=== PATIENT | female | born 1935 | race Caucasian/White ===

== ENCOUNTER → 2016-06-05 | Outpatient (CLI) | payer MEDICARE ==
[~2016-06-05] MED LIST: ACETAMINOPHEN PO; ALLEGRA180 MG PO; AMITIZA24 MCG PO; AMITRIPTYLINE H50 MG; AMITRIPTYLINE H50 MG PO; AMITRYPTYLINE PO; ASPIRIN EC81 M1 PO; ASPIRIN81 MG PO; AZO STANDARD97.5 MG PO; BACLOFEN10 MG PO; BACTRIM DS TAB1 EACH PO; BENADRYL25 M1 PO; CARAFATE1 G PO; CELEBREX100 MG PO; CIPRO PO; COLACE PO; COMPAZINE10 M1; COMPAZINE10 M1 PO; COMPAZINE10 M2 PO; DIFLUCAN PO; DISCONTINUED MED PO; EFFEXOR XR150 MG PO; EFFEXOR37.5 MG PO; EFFEXOR75 M1; EFFEXOR75 MG PO; EVISTA60 M1 DOB; EVISTA60 M1 PO; HYDROCODON-ACE1 EAC5 PO; HYDROCODON-ACE1 EAC9 PO; HYDROXYZINE HCL10 MG PO; HYDROXYZINE HCL25 M1 PO; IBUPROFEN800 MG PO; LASIX PO; LASIX20 MG PO; LIPITOR40 MG PO; LORTAB 10-5001 EACH PO; MACROBID100 M1 PO; MACRODANTIN PO; MAG-OX 400400 MG PO; METOPROL PO; METOPROLOL SUCC25 MG PO; METOPROLOL/HCTZ PO; MIRALAX17 GM; MIRALAX17 GM PO; MOBIC15 MG PO; MOBIC7.5 MG/5 M PO; MUCUS RELIEF600 MG PO; NORCO 7.5-3251 EACH PO; OXYCODONE-APAP1 CA2 PO; PANTOPRAZOLE SO40 MG PO; PROAMATINE10 MG PO; PROTONIX PO; SENNA S TABLET1 TAB PO; SIMVASTATIN40 MG PO; SM ESTRO VITAL PO; TRAMADOL HCL50 M1 PO; VANTIN200 MG PO; VIBRAMYCIN100 M1 PO; VICODIN 5/1 TAB 5/50 PO; VITAL-D RX TABL1 TAB PO; VOLTAREN75 MG; ZANAFLEX2 M1 PO; ZYRTEC10 M2 PO
[2016-06-05 15:23] LABS: BUN/CREATININE RATIO 13.33; CALCIUM SERUM 9.7 mg/dL (8.4-10.2); CREATININE SERUM 1.2 mg/dL (0.6-1.4); GLOM FILT RATE Estimated 45.9 mL/min (>60); POTASSIUM 4.6 mmol/L (3.5-5.1)
== END | disposition home or self-care (01) ==
LOC: SLAB 14:19
PROVIDERS: Internal Medicine Nephrology
DX: N18.3 Chronic kidney disease, stage 3 (moderate) (principal); D63.1 Anemia in chronic kidney disease; R80.9 Proteinuria, unspecified; N25.81 Secondary hyperparathyroidism of renal origin; E55.9 Vitamin D deficiency, unspecified
CPT/HCPCS: 36415; 80048; 82310; 83540; 83550; 83970

== ENCOUNTER → 2016-08-20 | Outpatient (CLI) | payer MEDICARE ==
--- NOTE | ~2016-08-20 | MR18 ---
[facility] A Service of [facility] RADIOLOGY TEXT RESULTS PATIENT: BAUDILIO VELASQUEZ LOCATION: [facility] : 37 UNIT #: [id number] AGE: [address]: Florentino Lu II, MD SEX: F ORDER DR: [id number] [place] [address] [id number] O MR#: [id number] Acc #: [id number] NAME: BAUDILIO VELASQUEZ : 1935 SEX: F STUDY DATE/TIME: 08/20/2016 10:49 UNIT: [facility] ROOM: STUDY DESCRIPTION: MR Brain Wo Contrast Attending Physician: Florentino Lu II., M.D. Referring Physician: Florentino Lu II., M.D. Ordering Physician: Vladimir Young M.D. Primary Care Physician: Vladimir Young M.D. MRI CENTER REPORT This report is preliminary unless electronic signature is present. 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 FINDINGS There is no MR evidence of acute intracranial hemorrhage, or acute ischemia or other restricted diffusion. There is no hydrocephalus or extraaxial fluid collection. Moderate nonspecific white matter changes are seen but no acute intracranial abnormality. Normal flow voids are seen in the cerebral vessels. Bone marrow signal is normal. The extracranial soft tissues are unremarkable. IMPRESSION Minimal age appropriate nonspecific white matter change. No acute abnormality. No hemorrhage or acute ischemia. Otherwise essentially normal for age negative unenhanced brain MRI. Dictated by... Hayes Vela M.D. THIS IS AN ELECTRONICALLY VERIFIED REPORT Hayes Vela M.D. at 08/21/2016 1:47 PM JOSELIN/pal TD: 08/21/2016 10:24 [facility] A Service [facility] RADIOLOGY TEXT RESULTS PATIENT: BAUDILIO VELASQUEZ LOCATION: [facility] #: [id number] : 37 UNIT #: [id number] AGE: [address]: Florentino Lu II, MD SEX: F ORDER DR: ANNA #: [id number] MRI CENTER REPORT Page 1 of 1
--- NOTE | ~2016-08-20 | MR134 ---
[facility] A Service [facility] RADIOLOGY TEXT RESULTS PATIENT: BAUDILIO VELASQUEZ LOCATION: [facility] : 37 UNIT #: [id number] AGE: [address]: Florentino Lu II, MD SEX: F ORDER DR: [id number] [place] [address] [id number] O MR#: [id number] Acc #: [id number] NAME: BAUDILIO VELASQUEZ : 1935 SEX: F STUDY DATE/TIME: 08/20/2016 11:12 UNIT: [facility] ROOM: STUDY DESCRIPTION: MR MRA Neck Wo Contrast Attending Physician: Florentino Lu II., M.D. Referring Physician: Florentino Lu II., M.D. Ordering Physician: Vladimir Young M.D. Primary Care Physician: Vladimir Young M.D. MRI CENTER REPORT This report is preliminary unless electronic signature is present. EXAM Neck MRA without contrast TECHNIQUE Axial oodg-an-kherdy neck MRA with three-dimensional reformats. COMPARISON STUDIES None. HISTORY Several years of episodes of blacking out with progressive worsening over past 3 months. FINDINGS Both common internal and external carotid and vertebral arteries are patent. The cervical carotid bifurcations demonstrate probably slight plaque but 0% stenosis in both internal carotids by NASCET criteria. IMPRESSION There may be slight plaque in both carotid bifurcations but there is 0% stenosis in both internal carotids by NASCET criteria. Both common, internal and external carotid and vertebral arteries flow antegrade. Dictated by... Hayes Vela M.D. THIS IS AN ELECTRONICALLY VERIFIED REPORT Hayes Vela M.D. at 08/26/2016 12:16 PM TEV/pcl [facility] A Service [facility] RADIOLOGY TEXT RESULTS PATIENT: BAUDILIO VELASQUEZ LOCATION: [facility] : 37 UNIT #: [id number] AGE: [address]: Florentino Lu II, MD SEX: F ORDER DR: TD: 08/21/2016 17:19 JOB #: [id number] MRI CENTER REPORT Page 1 of 1
--- NOTE | ~2016-08-20 | MR122 ---
[facility] A Service [facility] RADIOLOGY TEXT RESULTS PATIENT: BAUDILIO VELASQUEZ LOCATION: [facility] : 37 UNIT #: [id number] AGE: [address]: Florentino Lu II, MD SEX: F ORDER DR: [id number] [place] [address] [id number] O MR#: [id number] Acc #: [id number] NAME: BAUDILIO VELASQUEZ : 1935 SEX: F STUDY DATE/TIME: 08/20/2016 10:32 UNIT: [facility] ROOM: STUDY DESCRIPTION: MR MRA Head Wo Contrast Attending Physician: Florentino Lu II., M.D. Referring Physician: Florentino Lu II., M.D. Ordering Physician: Vladimir Young M.D. Primary Care Physician: Vladimir Young M.D. MRI CENTER REPORT This report is preliminary unless electronic signature is present. EXAM Head MRA, no contrast, 08/20/2016. PROCEDURE Axial xepa-xl-tkzvne head MRA with three-dimensional reformats. This CT exam was performed with one or more of the following radiation dose reduction techniques: automatic exposure control, adjustment of mA and/or kV according to patient size, and iterative reconstruction. COMPARISON None HISTORY Several year history of blackout spells, progressively worsening over the past 3 months with dizziness and unsteady gait. FINDINGS Both vertebral arteries and the basilar artery and both internal carotid arteries are patent. The right posterior communicator and anterior communicator are clearly identified. The left posterior communicator is not convincingly demonstrated. There is no intracranial aneurysm or flow-limiting stenosis. There is symmetric vascularity in the anterior middle and posterior cerebral distributions. IMPRESSION Normal head MRA. [facility] A Service [facility] RADIOLOGY TEXT RESULTS PATIENT: BAUDILIO VELASQUEZ LOCATION: [facility] : 37 UNIT #: [id number] AGE: [address]: Florentino Lu II, MD SEX: F ORDER DR: Dictated by... Hayes Vela M.D. THIS IS AN ELECTRONICALLY VERIFIED REPORT Hayes Vela M.D. at 08/21/2016 1:47 PM TEV/tmw TD: 08/21/2016 10:08 JOB #: [id number] MRI CENTER REPORT Page 1 of 1
== END | disposition home or self-care (01) ==
LOC: SMRI 10:01
DX: R42 Dizziness and giddiness (principal)
CPT/HCPCS: 70544; 70547; 70551

== ENCOUNTER → 2016-08-27 | Day surgery (SDC) | payer MEDICARE ==
--- NOTE | ~2016-08-27 | OR ---
Unit #: [id number] #: [id number] Patient: BAUDILIO VELASQUEZ [id number] [address] [address] [id number] O MR#: [id number] NAME: BAUDILIO VELASQUEZ ROOM: Date of Procedure: 08/27/2016 Admission Date: 08/27/2016 Surgeon: Andrei Champagne M.D. : 1935 Attending Physician: Andrei Champagne M.D. Primary Care Physician: Vladimir Young M.D. OPERATIVE REPORT ATTENDING PHYSICIAN Dr. Vladimir Young. PREOPERATIVE DIAGNOSIS The patient has presented with history of dysphagia to both solids as well as liquids. PROCEDURES PERFORMED 1. Upper gastrointestinal endoscopy and biopsy. 2. Upper gastrointestinal endoscopy and polypectomy. 3. Upper gastrointestinal endoscopy and submucosal injection. POSTOPERATIVE DIAGNOSES 1. 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 A 100 units of Botox was injected, 25 units in each of the four quadrants in lower esophageal sphincter, distal esophagus. 2. The patient also had incidental Schatzki ring, which was nonobstructing, but was treated by repeated biopsy in the same area of the ring. 3. The patient had two sessile polyps in the gastric body, they were sessile, and removed using snare cautery polypectomy, they were retrieved, and sent for histology. 4. Mild antral gastritis. 5. Rest of the examination up to third part of the duodenum was normal. RECOMMENDATIONS The patient will continue on Protonix once a day and be followed up in the office in 3 months' time. SEDATION USED MAC. DESCRIPTION OF PROCEDURE Following detailed explanation of potential risks and complications of an upper endoscopy, namely perforation, bleeding, and complication related to sedation, the patient was brought to GI lab and laid in the left lateral decubitus position. Lubricated tip of the Olympus video upper endoscope was passed through the bite block into the proximal esophagus under direct vision. The entire esophageal mucosa was examined. The patient did not have any changes suggestive of achalasia. In fact, the esophagus had chaotic peristaltic movements suggestive of nutcracker esophagus including hypertensive LES with smooth tapering of the distal esophagus; however, no Unit #: [id number] #: [id number] Patient: BAUDILIO VELASQUEZ A stricture was seen and no esophagitis was seen. The patient did have a coincidental Schatzki ring, which was felt to be nonobstructing. The scope was then advanced into the gastric cavity. Mucosa of the fundus, body, and antrum was examined. The patient was noted to have two sessile polyps in the body of the stomach. These appeared to be hyperplastic polyps. Prepyloric antral area showed mild diffuse erythema. Pylorus was intubated with visualization of the normal duodenal bulb and second and third part of the duodenum. Upon withdrawal and retroflexion, incisura, cardia, and greater curve were examined and biopsies were obtained from the antrum for CLOtest. Two polyps seen earlier were then removed using snare cautery polypectomy. They were retrieved and sent for histology. The scope was withdrawn into the distal esophagus. Each of the four quadrants of LES a centimeter above the Z-line was then injected with Botox 25 units each, a total 100 units was injected. We also dilated the distal esophageal ring using repeated punch biopsy of the same area of the ring. The scope was then withdrawn all the way up to pharynx. No additional findings were noted. The patient tolerated the procedure without any postprocedure complications. Dictated by... Callie Morrissey/annamarie TD: 08/27/2016 08:42 JOB #: [id number] OPERATIVE REPORT Page 1 of 1 X Andrei Champagne MD X PROCEDURE OPERATIVE NOTE
== END | disposition home or self-care (01) ==
LOC: COPS 06:09
DX: K31.7 Polyp of stomach and duodenum (principal); K29.70 Gastritis, unspecified, without bleeding; K22.2 Esophageal obstruction; M19.90 Unspecified osteoarthritis, unspecified site; Z87.442 Personal history of urinary calculi; Z87.19 Personal history of other diseases of the digestive system; Z88.0 Allergy status to penicillin; Z79.2 Long term (current) use of antibiotics; Z79.899 Other long term (current) drug therapy; Z90.710 Acquired absence of both cervix and uterus; Z90.10 Acquired absence of unspecified breast and nipple; Z98.890 Other specified postprocedural states
CPT/HCPCS: 87077; 88305; J0585

== ENCOUNTER → 2016-12-18 | Outpatient (CLI) | payer MEDICARE ==
[2016-12-18 13:25] LABS: HEMATOCRIT 35.2 % (35.0-45.0); HEMOGLOBIN 11.8 gm/dL (12.0-16.0); MEAN CELL VOLUME 97.8 FL (83-96); MEAN CORPUSCULAR HEMOGLOBIN 32.6 PG (28-34); MEAN CORPUSCULAR HGB CONC 33.4 g/dL (30-36); MEAN PLATELET VOLUME 7.5 FL (6.5-11.5); RED BLOOD COUNT 3.6 X10e (3.90-5.30); RED CELL DISTRIBUTION WIDTH 13.4 % (11.0-15.5); WHITE BLOOD COUNT 6.5 X10e3 (4.0-10.5)
[2016-12-18 14:06] LABS: BUN/CREATININE RATIO 12.3; CALCIUM SERUM 9.2 mg/dL (8.4-10.2); CREATININE SERUM 1.3 mg/dL (0.6-1.4); GLOM FILT RATE Estimated 38.7 mL/min (>60); PHOSPHOROUS 3.7 mg/dL (2.5-4.6); POTASSIUM 4.3 mmol/L (3.5-5.1)
[2016-12-18 17:48] LABS: CREATININE,RANDOM URINE 185 mg/dL; TOTAL PROTEIN,RANDOM URINE 29 mg/dl (<10)
[2016-12-21 15:03] LABS: CALCIUM (PTHINTACT) 9.7 mg/dL (8.6-10.4)
== END | disposition home or self-care (01) ==
LOC: SLAB 13:03
PROVIDERS: Internal Medicine Nephrology
DX: N18.3 Chronic kidney disease, stage 3 (moderate) (principal); D63.1 Anemia in chronic kidney disease; N25.81 Secondary hyperparathyroidism of renal origin; E55.9 Vitamin D deficiency, unspecified
CPT/HCPCS: 36415; 80048; 82306; 82310; 82570; 82728; 83540; 83550; 83970; 84100; 84156; 85027